=== PATIENT | female | born 1970 | race Caucasian/White ===

== ENCOUNTER 2017-11-17 13:20 | Emergency (ER) | payer BC ==
[~2017-11-17] VITALS: Ht 157.5 cm; Wt 60.8 kg
[~2017-11-17 13:20] MED LIST: NP THYROID60 MG PO
[2017-11-17 13:50] LABS: ABSOLUTE BASOPHILS 0.1 thou/uL (0.0-0.2); ABSOLUTE EOSINOPHILS 0.1 thou/uL (0.0-0.7); ABSOLUTE LYMPHOCYTES 1.5 thou/uL (0.8-5.3); ABSOLUTE MONOCYTES 0.4 thou/uL (0.0-1.2); ABSOLUTE NEUTROPHILS 3.1 thou/uL (1.6-8.1); BASOPHILS 1.7 %; EOSINOPHILS 2.3 %; HEMATOCRIT 40.2 % (37.0-47.0); HEMOGLOBIN 13.8 gm/dL (12.0-15.0); LYMPHOCYTES 29.1 %; MCH 31.4 pg (26.0-34.0); MCHC 34.3 g/dL (28.0-37.0); MCV 91.7 fL (80.0-100.0); MONOCYTES 7.7 %; MPV 10.2 fl. (7.2-11.1); NUCLEATED RBCS 0 /100WBC; PLATELET COUNT* 184 thou/uL (150-400); POLYS 59.2 %; RBC 4.39 mil/uL (4.20-5.00); RDW-CV 13.4 % (10.5-14.5); WBC 5.3 thou/uL (4.0-11.0)
[2017-11-17 13:59] LABS: ANION GAP 8 mmol/L (7-16); BUN 16 mg/dL (7-18); CALCIUM 9.3 mg/dL (8.5-10.1); CHLORIDE 106 mmol/L (98-107); CO2 25 mmol/L (21-32); CREATININE 0.9 mg/dL (0.6-1.3); GLUCOSE 120 mg/dL (70-99); POTASSIUM 3.7 mmol/L (3.5-5.1); SODIUM 139 mmol/L (136-145)
[2017-11-17 14:08] LABS: ALKALINE PHOSPHATASE 70 U/L (46-116); LIPASE 160 U/L (73-393); SGOT 20 U/L (15-37); SGPT 26 U/L (30-65); TOTAL BILIRUBIN 0.4 mg/dL (<0.1-1.0); TOTAL PROTEIN 7.3 g/dL (6.4-8.2); TROPONIN-I LEVEL <0.06 ng/mL (<0.06)
[2017-11-17] MEDS ORDERED: PEPCID20 MG PO (16:56)
[2017-11-17 17:08] VITALS: BP 128/71
--- NOTE | 2017-11-18 15:12 | EKG ---
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
--- NOTE | 2017-11-18 15:14 | EKG ---
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
== END 2017-11-17 17:09 | disposition home or self-care (01) ==
LOC: M.ERS 13:20
PROVIDERS: Physician Assistant
DX: R07.89 Other chest pain (principal); E03.9 Hypothyroidism, unspecified

== ENCOUNTER 2018-12-05 02:00 | Emergency (ER) | payer BC ==
[~2018-12-05] VITALS: Ht 157.5 cm; Wt 66.7 kg
[~2018-12-05 02:00] MED LIST changes: +PEPCID20 MG PO
[2018-12-05] MEDS ORDERED: CELEBREX 200 M200 M1 PO (02:07)
[2018-12-05] MEDS ORDERED: SYNTHROID75 MCG PO (02:07)
[2018-12-05 02:44] LABS: URINE BILIRUBIN NEGATIVE (Negative); URINE BLOOD NEGATIVE (Negative); URINE CLARITY CLEAR; URINE COLOR YELLOW; URINE GLUCOSE-RANDOM NEGATIVE (Negative); URINE KETONES NEGATIVE (Negative); URINE LEUKOCYTES-REFLEX NEGATIVE (Negative); URINE NITRITE-REFLEX NEGATIVE (Negative); URINE PROTEIN NEGATIVE (Negative); URINE SPECIFIC GRAVITY >= 1.030 (1.005-1.030); URINE UROBILINOGEN 0.2 E.U./dl (0.2-1.0)
[2018-12-05 02:45] LABS: ABSOLUTE BASOPHILS 0.1 thou/uL (0.0-0.2); ABSOLUTE EOSINOPHILS 0.1 thou/uL (0.0-0.7); ABSOLUTE LYMPHOCYTES 2.1 thou/uL (0.8-5.3); ABSOLUTE MONOCYTES 0.5 thou/uL (0.0-1.2); BASOPHILS 0.9 %; EOSINOPHILS 2.2 %; HEMATOCRIT 37.3 % (37.0-47.0); MCH 31.9 pg (26.0-34.0); MCHC 34.9 g/dL (28.0-37.0); MCV 91.3 fL (80.0-100.0); MPV 9.4 fl. (7.2-11.1); NUCLEATED RBCS 0 /100WBC; PLATELET COUNT* 168 thou/uL (150-400); POLYS 51.9 %; RBC 4.09 mil/uL (4.20-5.00); RDW-CV 13.8 % (10.5-14.5); WBC 5.8 thou/uL (4.0-11.0)
[2018-12-05 02:55] LABS: ANION GAP 10 mmol/L (7-16); BUN 13 mg/dL (7-18); CALCIUM 8.7 mg/dL (8.5-10.1); CHLORIDE 106 mmol/L (98-107); CO2 26 mmol/L (21-32); CREATININE 0.7 mg/dL (0.6-1.3); GLUCOSE 125 mg/dL (70-99); POTASSIUM 3.7 mmol/L (3.5-5.1); SODIUM 142 mmol/L (136-145)
[2018-12-05 02:58] LABS: PROTIME 9.8 Seconds (9.20-11.50)
[2018-12-05 03:04] LABS: ALBUMIN 3.6 g/dL (3.4-5.0); ALKALINE PHOSPHATASE 52 U/L (46-116); SGOT 16 U/L (15-37); SGPT 26 U/L (30-65); TOTAL BILIRUBIN 0.4 mg/dL (<0.1-1.0); TROPONIN-I LEVEL <0.06 ng/mL (<0.06)
[2018-12-05 05:00] VITALS: BP 120/71
--- NOTE | 2018-12-05 11:36 | EKG ---
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1970 Requested By: Irene Nelson Order Number: [id number] MD: Miguelito Mercado Measurements Intervals [place] Rate: 64 P: -63 MI: 139 QRS: 3 QRSD: 95 T: 0 QT: 402 QTc: 415 Interpretive Statements nsr Borderline T abnormalities, inferior leads Compared to ECG 11/17/2017 15:30:02 Ectopic atrial rhythm now present T-wave abnormality now present Sinus rhythm no longer present Left ventricular hypertrophy no longer present Electronically Signed On 12-05-2018 11:36:01 CDT by Miguelito Mercado [email or web address] <ELECTRONICALLY SIGNED> By: Miguelito Mercado MD, [facility] 12/05/18 1136 0203 0203 Miguelito Mercado MD, [facility] /EPI
== END 2018-12-05 05:00 | disposition home or self-care (01) ==
LOC: M.ERS 02:00
PROVIDERS: Personal Emergency Response Attendant
DX: R07.89 Other chest pain (principal); E03.9 Hypothyroidism, unspecified

== ENCOUNTER 2020-05-06 17:19 | Emergency (ER) | payer BC ==
[~2020-05-06] VITALS: Ht 154.9 cm; Wt 59.0 kg
[~2020-05-06 17:19] MED LIST changes: +CELEBREX 200 M200 M1 PO; +SYNTHROID75 MCG PO
[2020-05-06 18:37] LABS: ABSOLUTE LYMPHOCYTES 0.8 thou/uL (0.8-5.3); ABSOLUTE MONOCYTES 0.3 thou/uL (0.0-1.2); ABSOLUTE NEUTROPHILS 1.3 thou/uL (1.6-8.1); BASOPHILS 0.8 %; EOSINOPHILS 0.6 %; HEMATOCRIT 39.2 % (37.0-47.0); HEMOGLOBIN 13.6 gm/dL (12.0-15.0); MCH 31.3 pg (26.0-34.0); MCHC 34.7 g/dL (28.0-37.0); MCV 90.3 fL (80.0-100.0); MPV 9.4 fl. (7.2-11.1); NUCLEATED RBCS 0 /100WBC; PLATELET COUNT* 119 thou/uL (150-400); POLYS 52.6 %; RBC 4.34 mil/uL (4.20-5.00); RDW-CV 13.4 % (10.5-14.5); WBC 2.5 thou/uL (4.0-11.0)
[2020-05-06 18:46] LABS: APTT 23.8 Seconds (25.0-31.3); PROTIME 9.8 Seconds (9.20-11.50)
[2020-05-06 18:48] LABS: ANION GAP 8 mmol/L (7-16); BUN 11 mg/dL (7-18); CALCIUM 8.6 mg/dL (8.5-10.1); CHLORIDE 106 mmol/L (98-107); CO2 27 mmol/L (21-32); CREATININE 0.8 mg/dL (0.6-1.3); GLUCOSE 109 mg/dL (70-99); POTASSIUM 3.4 mmol/L (3.5-5.1); SODIUM 141 mmol/L (136-145)
[2020-05-06 19:02] LABS: ALBUMIN 3.6 g/dL (3.4-5.0); ALKALINE PHOSPHATASE 59 U/L (46-116); CK-MB MASS < 0.5 ng/mL (<0.5-3.6); LIPASE 177 U/L (73-393); NT-PRO BRAIN NAT PEPTIDE 42 pg/mL (<300); SGOT 23 U/L (15-37); SGPT 29 U/L (30-65); TOTAL BILIRUBIN 0.3 mg/dL (<0.1-1.0); TOTAL PROTEIN 7.9 g/dL (6.4-8.2)
[2020-05-06 19:19] LABS: INR < 0.9
[2020-05-06] MEDS ORDERED: PROAIR HFA8.5 GM INH (19:40)
[2020-05-06] MEDS ORDERED: TESSALON PERLE100 MG PO (19:40)
[2020-05-06] MEDS ORDERED: NORCO 5-325 TA1 EAC2 PO (19:40)
[2020-05-06] MEDS ORDERED: PROMETHAZI6.25 MG/5 PO (19:40)
[2020-05-06 20:18] VITALS: BP 131/83
--- NOTE | 2020-05-07 11:03 | EKG ---
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 : 1970 Requested By: Osiel Calvillo Order Number: [id number] MD: Jc Miller Measurements Intervals [place] Rate: 86 P: 57 MA: 165 QRS: -8 QRSD: 89 T: 46 QT: 375 QTc: 449 Interpretive Statements Sinus rhythm Left ventricular hypertrophy Borderline T abnormalities, anterior leads Baseline wander in lead(s) V1 Compared to ECG 12/05/2018 02:03:41 Left ventricular hypertrophy now present T-wave abnormality still present Electronically Signed On 05-07-2020 11:02:49 JAVA J2EE ARCHITECT by Jc Miller [email or web address] <ELECTRONICALLY SIGNED> By: Jc Miller MD, FACC 05/07/20 1102 1724 1724 Jc Miller MD, FACC /EPI
== END 2020-05-06 20:21 | disposition home or self-care (01) ==
LOC: M.ERS 17:19
PROVIDERS: Family Medicine
DX: U07.1 COVID-19 (principal); R10.9 Unspecified abdominal pain; E03.9 Hypothyroidism, unspecified; Z79.899 Other long term (current) drug therapy

== ENCOUNTER 2021-02-09 18:29 | Emergency (ER) | payer BC ==
[~2021-02-09] VITALS: Ht 157.5 cm; Wt 63.5 kg
[~2021-02-09 18:29] MED LIST changes: +NORCO 5-325 TA1 EAC2 PO; +PROAIR HFA8.5 GM INH; +PROMETHAZI6.25 MG/5 PO; +TESSALON PERLE100 MG PO
[2021-02-09] MEDS ORDERED: MELOXICAM7.5 MG PO (18:37)
[2021-02-09 19:16] LABS: ABSOLUTE BASOPHILS 0.1 thou/uL (0.0-0.2); ABSOLUTE EOSINOPHILS 0.1 thou/uL (0.0-0.7); ABSOLUTE LYMPHOCYTES 2.2 thou/uL (0.8-5.3); ABSOLUTE MONOCYTES 0.7 thou/uL (0.0-1.2); ABSOLUTE NEUTROPHILS 4.6 thou/uL (1.6-8.1); BASOPHILS 1.2 %; EOSINOPHILS 1.6 %; HEMATOCRIT 40.7 % (37.0-47.0); HEMOGLOBIN 13.8 gm/dL (12.0-15.0); LYMPHOCYTES 28.5 %; MCH 30.9 pg (26.0-34.0); MCHC 33.9 g/dL (28.0-37.0); MCV 91.2 fL (80.0-100.0); MONOCYTES 9.4 %; MPV 9.2 fl. (7.2-11.1); NUCLEATED RBCS 0 /100WBC; PLATELET COUNT* 219 thou/uL (150-400); POLYS 59.3 %; RBC 4.46 mil/uL (4.20-5.00); RDW-CV 13.5 % (10.5-14.5); WBC 7.7 thou/uL (4.0-11.0)
[2021-02-09 19:23] LABS: CREATININE 0.9 mg/dL (0.6-1.3); POTASSIUM 4.3 mmol/L (3.5-5.1)
[2021-02-09 19:28] LABS: ALBUMIN 3.9 g/dL (3.4-5.0); TOTAL BILIRUBIN 0.4 mg/dL (<0.1-1.0); TOTAL PROTEIN 7.4 g/dL (6.4-8.2)
[2021-02-09] MEDS ORDERED: LEVO-T100 MCG PO (19:53)
[2021-02-09 20:04] VITALS: BP 134/86
--- NOTE | 2021-02-10 10:20 | EKG ---
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1970 Requested By: Rick Wayne Order Number: [id number] MD: Jc Miller Measurements Intervals [place] Rate: 71 P: 0 [place]: 151 QRS: 2 QRSD: 90 T: 30 QT: 382 QTc: 416 Interpretive Statements Sinus rhythm Left ventricular hypertrophy Compared to ECG 05/06/2020 17:24:46 T-wave abnormality no longer present Electronically Signed On 02-10-2021 10:20:28 CDT by Jc Miller [email or web address] <ELECTRONICALLY SIGNED> By: Jc Miller MD, [facility] 02/10/21 1020 1833 1833 Jc Miller MD, [facility] /EPI
== END 2021-02-09 20:05 | disposition home or self-care (01) ==
LOC: M.ERS 18:29
PROVIDERS: Nurse Practitioner Psychiatric/Mental Health
DX: E03.9 Hypothyroidism, unspecified (principal); R00.2 Palpitations; Z20.822 Contact with and (suspected) exposure to COVID-19